=== PATIENT | male | born 1965 | race Caucasian/White ===

== ENCOUNTER 2020-01-18 07:30 | Observation (INO) | payer BC ==
[~2020-01-18] VITALS: Ht 177.8 cm; Wt 125.5 kg
[2020-01-18] MEDS ORDERED: LACTATED RINGERS 1,000 ML IV SCH (07:53)
[2020-01-18] MEDS ORDERED: GABAPENTIN 300 MG CAPSULE PO ONE (08:00)
[2020-01-18] MEDS ORDERED: SCOPOLAMINE 1MG PATCH TD SCH (08:00)
[2020-01-18] MEDS ORDERED: ACETAMINOPHEN 500 MG TABLET PO ONE (08:00)
[2020-01-18] MEDS ORDERED: FENTANYL PF 250 MCG/5ML ONE ×3 (08:20→10:48)
[2020-01-18] MEDS ORDERED: MIDAZOLAM 1 MG/ML, 2ML ONE (08:20)
[2020-01-18] MEDS ORDERED: ROSU10TA2 PO (08:28)
[2020-01-18] MEDS ORDERED: AMLO-150 PO (08:28)
[2020-01-18] MEDS ORDERED: OXYC5TAB3 PO (08:28)
[2020-01-18] MEDS ORDERED: LISI1TAB20 PO (08:28)
[2020-01-18] MEDS ORDERED: METO25TA35 PO (08:28)
[2020-01-18] MEDS ORDERED: [UNRECOGNIZED DRUG - OTHER] PO (09:02)
[2020-01-18] MEDS ORDERED: LIDOCAINE PF 2%, 5ML ONE (09:56)
[2020-01-18] MEDS ORDERED: DIAZEPAM 5 MG/ML, 2ML IVPush PRN (10:00)
[2020-01-18] MEDS ORDERED: ONDANSETRON ODT 8 MG PO PRN (10:00)
[2020-01-18] MEDS ORDERED: HYDROmorphone 2 MG/ML, 1ML IVPush PRN (10:00)
[2020-01-18] MEDS ORDERED: OXYcodone 5 MG/5 ML ORAL.SOL UDC PO PRN (10:00)
[2020-01-18] MEDS ORDERED: hydrALAzine 20 MG/ML, 1ML IV PRN (10:00)
[2020-01-18] MEDS ORDERED: PROMETHAZINE 25 MG SUPP PR PRN (10:00)
[2020-01-18] MEDS ORDERED: LORazepam 2 MG/ML, 1ML IVPush PRN (10:00)
[2020-01-18] MEDS ORDERED: ONDANSETRON 2MG/ML, 2ML IV PRN ×2 (10:00→12:00)
[2020-01-18] MEDS ORDERED: CEFAZOLIN 1,000 MG ONE (10:40)
[2020-01-18] MEDS ORDERED: PROPOFOL 10 MG/ML, 20ML ONE (10:40)
[2020-01-18] MEDS ORDERED: ROCURONIUM 10MG/ML,5ML ONE (10:40)
[2020-01-18] MEDS ORDERED: NEOSTIGMINE 1 MG/ML, 10ML ONE (10:40)
[2020-01-18] MEDS ORDERED: LABETALOL 5MG/ML, 20ML ONE ×2 (10:40→12:43)
[2020-01-18] MEDS ORDERED: GLYCOPYRROLATE 0.2MG/1ML, 5ML ONE (10:40)
[2020-01-18] MEDS ORDERED: ONDANSETRON 2MG/ML, 2ML ONE (10:40)
[2020-01-18] MEDS ORDERED: DEXAMETHASONE 4 MG/ML, 1ML ONE (10:40)
[2020-01-18] MEDS ORDERED: SUCCINYLCHOLINE 20 MG/ML, 10ML ONE (10:40)
[2020-01-18] MEDS ORDERED: SODIUM CHLORIDE 0.9% 1,000 ML IV SCH (11:57)
[2020-01-18] MEDS ORDERED: ZOLPIDEM 5MG TABLET PO PRN (12:00)
[2020-01-18] MEDS ORDERED: SENNA/DOCUSATE TABLET PO PRN (12:00)
[2020-01-18] MEDS ORDERED: BISACODYL 10 MG SUPP PR PRN (12:00)
[2020-01-18] MEDS ORDERED: HYDROmorphone 1 MG/ML, 1ML INJ IVPush PRN (12:00)
[2020-01-18] MEDS ORDERED: PSYLLIUM PACKET PO PRN (12:00)
[2020-01-18] MEDS ORDERED: ONDANSETRON 4 MG TABLET PO PRN (12:00)
[2020-01-18] MEDS ORDERED: HYDROcodone/APAP 10/325 MG TABLET PO PRN (12:00)
[2020-01-18] MEDS ORDERED: ACETAMINOPHEN 500 MG TABLET PO SCH (12:00)
[2020-01-18] MEDS ORDERED: MAGNESIUM HYDROXIDE 8%, 30ML UDC PO PRN (12:00)
[2020-01-18] MEDS ORDERED: CALCIUM/VITAMIN D3 250-125 TABLET PO SCH (12:00)
[2020-01-18] MEDS ORDERED: DIAZEPAM 5 MG TABLET PO PRN (12:00)
[2020-01-18] MEDS ORDERED: KETOROLAC 30 MG/1 ML IV SCH (12:00)
[2020-01-18] MEDS ORDERED: ALUMINUM/MAG/SIMETHICONE 30 ML UDC PO PRN (12:00)
[2020-01-18] MEDS ORDERED: PROMETHAZINE 12.5 MG SUPP PR PRN (12:00)
[2020-01-18] MEDS ORDERED: POLYETHYLENE GLYCOL 17 GM PACKET PO PRN (12:00)
[2020-01-18] MEDS ORDERED: DIPHENHYDRAMINE 50 MG CAPSULE PO PRN (12:00)
[2020-01-18] MEDS ORDERED: FENTANYL PF 100 MCG/2ML ONE ×2 (12:09→12:57)
[2020-01-18] MEDS ORDERED: MEPERIDINE/PF 25MG/ML,1ML ONE (12:09)
[2020-01-18] MEDS: FENTANYL PF 100 MCG/2ML IV PRN ×3 (12:11→12:59)
[2020-01-18] MEDS ORDERED: HYDROcodone/APAP 7.5-325MG/15ML UDC ONE (12:24)
[2020-01-18] MEDS ORDERED: HYDROcodone/APAP 7.5-325MG/15ML UDC PO PRN (12:30)
[2020-01-18] MEDS ORDERED: MEPERIDINE/PF 25MG/ML,1ML IVPush PRN (12:30)
[2020-01-18] MEDS ORDERED: TRANEXAMIC ACID 1,000 MG in SODIUM CHLORIDE 0.9% 100 ML IVPB ONE (12:30)
[2020-01-18] MEDS: LABETALOL 5MG/ML, 20ML IV PRN ×2 (12:44→12:57)
[2020-01-18 13:45] VITALS: BP 136/76
[2020-01-18 15:57] VITALS: BP 134/76
[2020-01-18] MEDS ORDERED: CEFAZOLIN PMX 2GM/50ML 50 ML IVPB SCH (18:00)
[2020-01-18] MEDS ORDERED: FERROUS SULFATE 325 MG TABLET PO SCH (18:00)
[2020-01-18] MEDS ORDERED: ASPIRIN 81 MG TABLET EC PO SCH (18:00)
[2020-01-18] MEDS ORDERED: DOCUSATE 100 MG CAPSULE PO SCH (21:00)
[2020-01-19] MEDS ORDERED: DEXAMETHASONE 4 MG/ML, 1ML IVPush SCH (06:00)
[2020-01-19] MEDS ORDERED: ASCORBIC ACID 500 MG TABLET PO SCH (09:00)
[2020-01-19] MEDS ORDERED: MULTIVITAMINS/MINERALS TABLET PO SCH (09:00)
== END 2020-01-18 16:30 | disposition home or self-care (01) ==
LOC: OUT 07:30 → ORIP 11:57 → 4NE 13:26
PROVIDERS: ADMIT Orthopaedic Surgery; ATTEND Orthopaedic Surgery
DX: M16.12 Unilateral primary osteoarthritis, left hip (principal); I10 Essential (primary) hypertension; G47.33 Obstructive sleep apnea (adult) (pediatric); M53.9 Dorsopathy, unspecified; Z87.891 Personal history of nicotine dependence; Z79.899 Other long term (current) drug therapy
CPT/HCPCS: 27130; 72170; 87081; 87147; 93005; 97161; C1713; C1776; G0378; J0171; J0330; J0690; J1100; J1885; J2175; J2250; J2405; J2704; J2710; J2795; J3010; J7120; J3370